=== PATIENT | male | born 1990 | race Caucasian/White ===

== ENCOUNTER 2023-05-12 13:39 | Emergency (ER) | payer MEDICAID ==
[~2023-05-12] VITALS: Ht 188 cm; Wt 95.5 kg
[2023-05-12 13:45] VITALS: TEMP 97.7
[2023-05-12] MEDS ORDERED: TRIA15CR61 TOP (16:02)
[2023-05-12] MEDS ORDERED: DIPH25CA83 PO (16:02)
[2023-05-12 16:17] VITALS: BP 135/93; PULSE 58; RESP 18; O2SAT 97
== END 2023-05-12 16:19 | disposition home or self-care (01) ==
LOC: ER 13:39
DX: R21 Rash and other nonspecific skin eruption (principal)
CPT/HCPCS: 99283